=== PATIENT | female | born 1965 | race African-American/Black ===

== ENCOUNTER 2019-04-18 11:32 | Inpatient (IN) | payer OTHER ==
[2019-04-18 13:40] VITALS: BMI 24.9
--- NOTE | 2019-04-18 17:10 | HP ---
"CIWA Score Nausea/Vomitin-No Nausea/No Vomiting Muscle Tremors: 4-Moderate,w/Arms Extend Anxiety: 3 Agitation: 3 Paroxysmal Sweats: 2 (Slight facial mositure) Orientation: 0-Oriented Tacttile Disturbances: 0-None Auditory Disturbances: 0-None Visual Disturbances: 0-None Headache: 0-None Present CIWA-Ar Total Score: 12 - Admission Criteria OAS Guidelines: Admission for Medically Managed Detox: Requires at least one of the followin. CIWA greater than 12 2. Seizures within the past 24 hours 3. Delirium tremens within the past 24 hours 4. Hallucinations within the past 24 hours 5. Acute intervention needed for co occurring medical disorder 6. Acute intervention needed for co occurring psychiatric disorder 7. Severe withdrawal that cannot be handled at a lower level of care (continued vomiting, continued diarrhea, abnormal vital signs) requiring intravenous medication and/or fluids 8. Patient presents the following: CIWA greater than 12 Admission Criteria Met: Admission criteria met Admission ROS [facility] Chief Complaint: Alcohol withdrawal. Allergies/Adverse Reactions: Allergies Allergy/AdvReac Type Severity Reaction Status Date / Time No Known Drug Allergies Allergy Verified 04/18/19 17:56 rice Allergy Verified 04/18/19 13:30 History of Present Illness: Alcohol use began at age 13. Current use x 5 years is approx 3 -16 oz vodkas daily Cocaine - 1 bundle started use at about 15 years ago (Smokes and injects) Marijuana use began at age 15. Benzo use began at age 54. 1-2 klonopin 2x/wk Heroin use began at age 17. Relapses with heroin on the weekends. Uses IVDU. Does not share needles or works. On [facility]. Current methadone dose is 80 mg daily. Does not have a Narcan kit at home. Denies hx seizures or overdoses. Last blackout 1 month ago. PMHx: Asthma (last exacerbation years ago) MHHx: Depression, insomnia, and anxiety. Last saw a MH Provider 1 month ago. States compliant w/ mental health medications. Denies thoughts of harming self or others. Patient Name: Sabrina Guerra Date: 1965 Address: [address] [place] [address] Sex: Female Rx Written Rx Dispensed Drug Quantity Days Supply Prescriber Name 03/28/2019 04/04/2019 zolpidem tartrate 5 mg tablet 30 30 Adepoju, Caron Judie 02/24/2019 02/24/2019 zolpidem tartrate 10 mg tablet 30 30 Adepoju, Caron Judie 01/11/2019 01/12/2019 zolpidem tartrate 10 mg tablet 30 30 Adepoju, Caron Judie 11/29/2018 12/01/2018 zolpidem tartrate 10 mg tablet 30 30 Adepoju, Caron Judie 10/25/2018 10/29/2018 zolpidem tartrate 10 mg tablet 30 30 Adepoju, Caron Judie 09/14/2018 09/22/2018 zolpidem tartrate 10 mg tablet 30 30 Adepoju, Caron Judie 08/17/2018 08/23/2018 zolpidem tartrate 10 mg tablet 30 30 Adepoju, Caron Judie 07/20/2018 07/24/2018 zolpidem tartrate 10 mg tablet 30 30 Adepoju, Caron Judie 06/14/2018 06/24/2018 zolpidem tartrate 10 mg tablet 30 30 Adepoju, Caron Judie 05/24/2018 05/25/2018 zolpidem tartrate 10 mg tablet 30 30 Adepoju, Caron Judie 04/26/2018 04/27/2018 zolpidem tartrate 10 mg tablet 30 30 Adepoju, Caron Dimas Search Terms: Sabrina Charlie, 1965 Search Date: 04/18/2019 05:05:57 PM States Searched: [place], [place], [place], [place], [place], [place], [place], [place] The Drug Utilization Report below displays the controlled substance prescriptions, if any, that were dispensed in the indicated state(s). The information displayed on this report is compiled from requests submitted to other states' PMPs, and accurately reflects the information as returned by them. Blank diego indicate data not provided by other state. This report was requested by: Almaz Xavier | Reference #: [id number] Exam Limitations: No Limitations - Ebola screening Have you traveled outside of the country in the last 21 days: No Have you had contact with anyone from an Ebola affected area: No Have you been sick,other than usual withdrawal symptoms: No (Denies recent exposure to measles) Do you have a fever: No - Review of Systems Constitutional: Chills, Diaphoresis, Changes in sleep (Difficulty staying asleep ) EENT: reports: Cataracts ((R) eye - no eye drops), Dental Problems (Dentures. Able to chew and swallow ok) Respiratory: reports: No Symptoms reported Cardiac: reports: No Symptoms Reported GI: reports: No Symptoms Reported : reports: No Symptoms Reported Musculoskeletal: reports: No Symptoms Reported Neuro: reports: No Symptoms reported Endocrine: reports: No Symptoms Reported Hematology: reports: Anemia (Low iron) Psychiatric: reports: Judgement Intact, Agitated, Anxious, Depressed (Denies thoughts of harming self or others.) Other Systems: Reviewed and Negative Patient History - PPD History Previous Implant?: Yes Documented Results: Negative w/o proof Implanted On Prior R Admission?: No PPD to be Administered?: Yes - Reproductive History Patient is a Female of Child Bearing Age (11 -55 yrs old): Yes Patient : No (LMP 2014) - Smoking Cessation Smoking history: Current every day smoker Have you smoked in the past 12 months: Yes Aproximately how many cigarettes per day: 15 Hx Chewing Tobacco Use: No Initiated information on smoking cessation: Yes 'Breaking Loose' booklet given: 04/18/19 - Substance & Tx. History Hx Alcohol Use: Yes Hx Substance Use: Yes Substance Use Type: Alcohol, Cocaine, Marijuana, Tranquilizers - Substances abused Alcohol Substance route: Oral Frequency: Daily Amount used: 1 PINT VODKA Age of first use: 13 Date of last use: 04/18/19 Other Other (specify): METHADONE Substance route: Oral Frequency: Daily (Prescribed) Amount used: 80MG Age of first use: 42 Date of last use: 04/18/19 Admission Physical Exam S - Vital Signs Vital Signs: Vital Signs - 24 hr 04/18/19 13:30 Temperature 98.4 F Pulse Rate 86 Respiratory 18 Rate Blood Pressure 130/72 - Physical General Appearance: Yes: Nourished, Mild Distress, Tremorous, Sweating (Slight facial mositure), Anxious HEENTM: Yes: EOMI, Hearing grossly Normal, Normocephalic, Pharynx Normal (No teeth), Other ((R) pupil whitish/opaque in color. (L) black. Both pupils respond to light.) Respiratory: Yes: Lungs Clear, Normal Breath Sounds, No Respiratory Distress Neck: Yes: No masses,lesions,Nodules, Supple Breast: Yes: Breast Exam Deferred Cardiology: Yes: Regular Rhythm, Regular Rate (HR: 64.), S1, S2, Bradycardia, Other (Abnormal EKG (? septal infarct/T wave abnormality) this visit.) Abdominal: Yes: Non Tender, Flat, Soft, Increased Bowel Sounds Genitourinary: Yes: Within Normal Limits Back: Yes: Normal Inspection Musculoskeletal: Yes: full range of Motion, Gait Steady Extremities: Yes: Normal Capillary Refill, Normal Range of Motion, Non-Tender, Tremors (Tremors of hands when arms elevated) Neurological: Yes: painter supervisor II-XII NML intact, Fully Oriented, Alert, Motor Strength 5/5, Normal Mood/Affect Integumentary: Yes: Normal Color, Warm, Track Wayne (Few needle wayne. No increased erythema or warmth) Lymphatic: Yes: Within Normal Limits - Diagnostic (1) Alcohol dependence with uncomplicated withdrawal Current Visit: Yes Status: Acute (2) Cannabis dependence, uncomplicated Current Visit: Yes Status: Chronic (3) Sedative, hypnotic or anxiolytic abuse, uncomplicated Current Visit: Yes Status: Acute (4) Cocaine dependence, uncomplicated Current Visit: Yes Status: Chronic (5) Opioid dependence on agonist therapy Current Visit: Yes Status: Chronic Comment: On [facility]. Continues to relapse w/ opiates. (6) History of asthma Current Visit: No Status: Chronic (7) Pupil disorder Current Visit: Yes Status: Chronic Comment: Opaque (R) pupil (8) Abnormal finding on EKG Current Visit: Yes Status: Suspected Comment: Denies CP/SOB. Will repeat EKG in am. Cleared for Admission [facility] - Detox or Rehab [facility] Level of Care: Medically Managed Detox Regimen/Protocol: Librium Claeared for Rehab Admission: No Inpatient Rehab Admission - Rehab Decision to Admit Inpatient rehab admission?: No"
[2019-04-18] MEDS ORDERED: MAG HYDROX/AL HYDROX/SIMETH 30 ML UNIT-DOSE CUP PO PRN (17:40)
[2019-04-18] MEDS ORDERED: IBUPROFEN 400 MG TABLET (FP) PO PRN (17:40)
[2019-04-18] MEDS ORDERED: BISMUTH SUBSALICYLATE 524 MG/30 ML UD PO PRN (17:40)
[2019-04-18] MEDS ORDERED: METHOCARBAMOL 500 MG TABLET PO PRN (17:40)
[2019-04-18] MEDS ORDERED: MAGNESIUM HYDROX 2400MG/30ML ORAL SUSPENSION 30 ML CUP PO PRN (17:40)
[2019-04-18] MEDS ORDERED: guaiFENesin 200 MG/10 ML 10 ML UNIT-DOSE CUPS PO PRN (17:40)
[2019-04-18] MEDS ORDERED: ONDANSETRON *ODT* 4 MG TABLET SL PRN (17:40)
[2019-04-18] MEDS ORDERED: ACETAMINOPHEN 325 MG TABLET (FP) PO PRN ×2 (17:40)
[2019-04-18] MEDS ORDERED: chlordiazePOXIDE HCL 10 MG CAPSULE PO PRN (17:40)
[2019-04-18] MEDS ORDERED: NICOTINE POLACRILEX 2 MG GUM BUC PRN (17:40)
[2019-04-18] MEDS ORDERED: MENTHOL/PHENOL 1 EACH UD MM PRN (17:40)
[2019-04-18] MEDS ORDERED: MAGNESIUM CITRATE 300 ML BOTTLE PO PRN (17:40)
[2019-04-18] MEDS ORDERED: ALBUTEROL SO4 0.083% IH SOL 2.5 MG/3 ML VIAL.NEB. NEB PRN (17:43)
[2019-04-18] MEDS: MELATONIN 5 MG TABLETS PO PRN (22:17)
[2019-04-18] MEDS: chlordiazePOXIDE HCL 25 MG CAPSULE PO SCH (22:17)
[2019-04-18] MEDS: THIAMINE HCL 100 MG TABLET (FP) PO SCH (22:17)
[2019-04-19] MEDS: chlordiazePOXIDE HCL 25 MG CAPSULE PO SCH ×2 (06:02→13:48)
[2019-04-19] MEDS ORDERED: METHADONE HCL 40 MG DISPERSABLE TABLET PO ONE (08:40)
[2019-04-19] MEDS: PRENATAL VITAMINS W/ FOLIC ACID TABLET (FP) PO SCH (09:31)
[2019-04-19 10:37] LABS: ALBUMIN 3.2 g/dl (3.4-5.0); BILIRUBIN,TOTAL 0.2 mg/dL (0.2-1); CALCIUM 9.3 mg/dL (8.5-10.1); TOT PROT 6.5 g/dl (6.4-8.2)
[2019-04-19 10:38] LABS: HEMATOCRIT 42.3 % (32.4-45.2); HEMOGLOBIN 13.5 GM/dL (10.7-15.3); MCH 30.3 pg (25.7-33.7); MEAN CELL VOLUME 94.5 fl (80-96); MEAN PLT VOLUME 9.8 fl (7.5-11.1); PLATELET COUNT 154 K/MM3 (134-434); RBC 4.48 M/mm3 (3.60-5.2); RDW 14.2 % (11.6-15.6); WHITE BLOOD COUNT 5.1 K/mm3 (4.0-10.0)
--- NOTE | 2019-04-19 10:49 | PN ---
[facility] CIWA - CIWA Score Nausea/Vomitin-No Nausea/No Vomiting Muscle Tremors: 3 Anxiety: 3 Agitation: 3 Paroxysmal Sweats: 2 Orientation: 0-Oriented Tacttile Disturbances: 0-None Auditory Disturbances: 0-None Visual Disturbances: 0-None Headache: 0-None Present CIWA-Ar Total Score: 11 S Progress Note (SOAP) Subjective: irritable agitation body aches interrupted sleep Objective: 04/19/19 10:48 Vital Signs Temperature 97.5 F L 04/19/19 09:36 Pulse Rate 58 L 04/19/19 09:36 Respiratory Rate 17 04/19/19 09:36 Blood Pressure 139/68 04/19/19 09:36 O2 Sat by Pulse Oximetry (%) Laboratory Tests 04/18/19 04/19/19 04/19/19 18:31 07:00 07:00 WBC 5.1 RBC 4.48 Hgb 13.5 Hct 42.3 MCV 94.5 MCH 30.3 MCHC 32.0 RDW 14.2 Plt Count 154 MPV 9.8 Sodium 144 Potassium 4.0 Chloride 108 H Carbon Dioxide 35 H Anion Gap 2 L BUN 13 Creatinine 1.0 Est GFR (CKD-EPI)AfAm 73.97 Est GFR (CKD-EPI)NonAf 63.82 Random Glucose 71 L Calcium 9.3 Total Bilirubin 0.2 AST 29 ALT 31 Alkaline Phosphatase 95 Total Protein 6.5 Albumin 3.2 L POC Urine HCG, Qual Negative labs noted aaox3 ambulating no acute distress Assessment: 04/19/19 10:48 mild withdrawal sx Plan: continue detox increase fluids
[2019-04-19] MEDS: NICOTINE 21 MG/24 HOURS TOPICAL PATCH TD SCH (11:00)
--- NOTE | 2019-04-19 12:04 | EKG ---
Test Reason : Blood Pressure : / mmHG Vent. Rate : 060 BPM Atrial Rate : 060 BPM P-R Int : 128 ms QRS Dur : 082 ms QT Int : 444 ms P-R-T Axes : 053 074 060 degrees QTc Int : 444 ms NORMAL SINUS RHYTHM MODERATE VOLTAGE CRITERIA FOR LVH, MAY BE NORMAL VARIANT CANNOT RULE OUT SEPTAL INFARCT , AGE UNDETERMINED T WAVE ABNORMALITY, CONSIDER ANTERIOR ISCHEMIA ABNORMAL ECG NO PREVIOUS ECGS AVAILABLE Confirmed by Campbell Overton MD ([id number]) on 04/19/2019 12:04:28 PM Referred By: Confirmed By:Campbell Overton MD
--- NOTE | 2019-04-19 12:04 | EKG ---
Test Reason : Blood Pressure : / mmHG Vent. Rate : 063 BPM Atrial Rate : 063 BPM P-R Int : 136 ms QRS Dur : 074 ms QT Int : 442 ms P-R-T Axes : 061 058 041 degrees QTc Int : 452 ms NORMAL SINUS RHYTHM NONSPECIFIC T WAVE ABNORMALITY ABNORMAL ECG WHEN COMPARED WITH ECG OF 18-APR-2019 18:54, NO SIGNIFICANT CHANGE WAS FOUND Confirmed by Campbell Overton MD ([id number]) on 04/19/2019 12:04:24 PM Referred By: ALEJO PETER Confirmed By:Campbell Overton MD
[2019-04-19] MEDS: chlordiazePOXIDE 5 MG CAPSULE PO SCH (21:55)
[2019-04-19] MEDS: MELATONIN 5 MG TABLETS PO PRN (21:55)
[2019-04-19] MEDS: THIAMINE HCL 100 MG TABLET (FP) PO SCH (21:55)
[2019-04-19 23:35] LABS: EPI CELLS 8.5 /HPF (0-5/HPF); HYALINE CASTS 15 /lpf (0-8); URINE BACTERIA 360.9 /hpf (NEGATIVE); URINE RBC 3 /hpf (0-4); URINE WBC 15 /hpf (0-5)
[2019-04-19 23:52] LABS: URINE APPEARANCE CLOUDY; URINE BILIRUBIN NEGATIVE (NEGATIVE); URINE COLOR YELLOW; URINE GLUCOSE (UA) NEGATIVE (NEGATIVE); URINE KETONE TRACE (NEGATIVE)
[2019-04-19 23:53] LABS: URINE LEUK ESTERASE 2+ (NEGATIVE); URINE NITRITE NEGATIVE (NEGATIVE); URINE PROTEIN NEGATIVE (NEGATIVE)
[2019-04-20 01:50] LABS: URINE CRYSTALS 1+ /hpf
[2019-04-20] MEDS: METHADONE HCL 40 MG DISPERSABLE TABLET PO SCH (05:34)
[2019-04-20] MEDS: chlordiazePOXIDE 5 MG CAPSULE PO SCH ×2 (05:34→12:20)
--- NOTE | 2019-04-20 10:55 | PN ---
[facility] CIWA - CIWA Score Nausea/Vomitin-No Nausea/No Vomiting Muscle Tremors: 3 Anxiety: 2 Agitation: 2 Paroxysmal Sweats: 2 Orientation: 0-Oriented Tacttile Disturbances: 0-None Auditory Disturbances: 0-None Visual Disturbances: 0-None Headache: 0-None Present CIWA-Ar Total Score: 9 S Progress Note (SOAP) Subjective: feeling better little sweats chills Objective: 04/20/19 10:29 Vital Signs Temperature 97.7 F 04/20/19 09:35 Pulse Rate 53 L 04/20/19 09:35 Respiratory Rate 18 04/20/19 09:35 Blood Pressure 103/70 04/20/19 09:35 O2 Sat by Pulse Oximetry (%) Laboratory Tests 04/18/19 04/19/19 04/19/19 18:31 07:00 07:00 WBC 5.1 RBC 4.48 Hgb 13.5 Hct 42.3 MCV 94.5 MCH 30.3 MCHC 32.0 RDW 14.2 Plt Count 154 MPV 9.8 Sodium 144 Potassium 4.0 Chloride 108 H Carbon Dioxide 35 H Anion Gap 2 L BUN 13 Creatinine 1.0 Est GFR (CKD-EPI)AfAm 73.97 Est GFR (CKD-EPI)NonAf 63.82 Random Glucose 71 L Calcium 9.3 Total Bilirubin 0.2 AST 29 ALT 31 Alkaline Phosphatase 95 Total Protein 6.5 Albumin 3.2 L Urine Color Urine Appearance Urine pH Ur Specific [place] Urine Protein Urine Glucose (UA) Urine Ketones Urine Blood Urine Nitrite Urine Bilirubin Urine Urobilinogen Ur Leukocyte Esterase Urine WBC (Auto) Urine RBC (Auto) Urine Casts (Auto) U Epithel Cells (Auto) U Sm Round Cell (Auto) Urine Crystals (Auto) Urine Bacteria (Auto) POC Urine HCG, Qual Negative RPR Titer 04/19/19 04/19/19 07:00 11:20 WBC RBC Hgb Hct MCV MCH MCHC RDW Plt Count MPV Sodium Potassium Chloride Carbon Dioxide Anion Gap BUN Creatinine Est GFR (CKD-EPI)AfAm Est GFR (CKD-EPI)NonAf Random Glucose Calcium Total Bilirubin AST ALT Alkaline Phosphatase Total Protein Albumin Urine Color Yellow Urine Appearance Cloudy Urine pH 6.0 Ur Specific [place] 1.024 Urine Protein Negative Urine Glucose (UA) Negative Urine Ketones Trace H Urine Blood Negative Urine Nitrite Negative Urine Bilirubin Negative Urine Urobilinogen 1.0 Ur Leukocyte Esterase 2+ H Urine WBC (Auto) 15 Urine RBC (Auto) 3 Urine Casts (Auto) 15 U Epithel Cells (Auto) 8.5 U Sm Round Cell (Auto) 1+ Urine Crystals (Auto) 1+ Urine Bacteria (Auto) 360.9 POC Urine HCG, Qual RPR Titer Nonreactive labs noted repeat u/a aaox3 ambulating no acute distress Assessment: 04/20/19 10:55 mild withdrawal sx Plan: continue detox increase fluids repeat u/a
[2019-04-20] MEDS: NICOTINE 21 MG/24 HOURS TOPICAL PATCH TD SCH (10:57)
[2019-04-20] MEDS: PRENATAL VITAMINS W/ FOLIC ACID TABLET (FP) PO SCH (10:57)
[2019-04-20] MEDS ORDERED: chlordiazePOXIDE HCL 10 MG CAPSULE PO PRN (21:00)
[2019-04-20] MEDS: THIAMINE HCL 100 MG TABLET (FP) PO SCH (22:37)
[2019-04-20] MEDS: chlordiazePOXIDE HCL 10 MG CAPSULE PO SCH (22:37)
[2019-04-20] MEDS: MELATONIN 5 MG TABLETS PO PRN (22:38)
[2019-04-21] MEDS: METHADONE HCL 40 MG DISPERSABLE TABLET PO SCH (05:36)
[2019-04-21] MEDS: chlordiazePOXIDE HCL 10 MG CAPSULE PO SCH ×3 (05:36→22:38)
[2019-04-21] MEDS: NICOTINE 21 MG/24 HOURS TOPICAL PATCH TD SCH (10:04)
[2019-04-21] MEDS: PRENATAL VITAMINS W/ FOLIC ACID TABLET (FP) PO SCH (10:04)
--- NOTE | 2019-04-21 11:15 | PN ---
S CIWA - CIWA Score Nausea/Vomitin-No Nausea/No Vomiting Muscle Tremors: 1-None Visible, but [place] Anxiety: 1-Mildly Anxious Agitation: 1-Slight > Activity Paroxysmal Sweats: No Perspiration Orientation: 0-Oriented Tacttile Disturbances: 0-None Auditory Disturbances: 0-None Visual Disturbances: 0-None Headache: 0-None Present CIWA-Ar Total Score: 3 BHS Progress Note (SOAP) Subjective: feeling much better little anxiety Objective: 04/21/19 11:17 Vital Signs Temperature 97.6 F 04/21/19 09:30 Pulse Rate 54 L 04/21/19 09:30 Respiratory Rate 18 04/21/19 09:30 Blood Pressure 104/67 04/21/19 09:30 O2 Sat by Pulse Oximetry (%) aaox3 ambulating no acute distress Assessment: 04/21/19 11:17 withdrawal sx Plan: continue detox increase fluids d/c in am
[2019-04-21 14:47] LABS: EPI CELLS >36 /HPF (0-5/HPF); HYALINE CASTS 38 /lpf (0-8); PH,URINE 6.5 (5.0-8.0); URINE APPEARANCE TURBID; URINE BILIRUBIN NEGATIVE (NEGATIVE); URINE COLOR YELLOW; URINE GLUCOSE (UA) NEGATIVE (NEGATIVE); URINE KETONE NEGATIVE (NEGATIVE); URINE LEUK ESTERASE 3+ (NEGATIVE); URINE NITRITE NEGATIVE (NEGATIVE); URINE PROTEIN NEGATIVE (NEGATIVE); URINE WBC 128 /hpf (0-5)
[2019-04-21 15:15] LABS: URINE RBC 3.6 /hpf (0-4)
[2019-04-21] MEDS: THIAMINE HCL 100 MG TABLET (FP) PO SCH (22:38)
[2019-04-21] MEDS: MELATONIN 5 MG TABLETS PO PRN (22:38)
[2019-04-22] MEDS: METHADONE HCL 40 MG DISPERSABLE TABLET PO SCH (06:12)
--- NOTE | 2019-04-22 09:59 | DS ---
[facility] Detox Discharge Summary Admission Date: 04/18/19 Discharge Date: 04/22/19 - History Present History: Alcohol Dependence, Cannabis Dependence, Cocaine Dependence, Sedative Dependence - Physical Exam Results Vital Signs: Vital Signs Temperature 98.0 F 04/22/19 09:26 Pulse Rate 51 L 04/22/19 09:26 Respiratory Rate 18 04/22/19 09:26 Blood Pressure 106/53 L 04/22/19 09:26 O2 Sat by Pulse Oximetry (%) - Treatment Hospital Course: Detox Protocol Followed, Detoxed Safely, Responded well, Discharged Condition Good, Rehab Referral Accepted - Medication Discharge Medications: Ambulatory Orders Albuterol Sulfate Inhaler - [Ventolin Hfa Inhaler -] 1 - 2 inh PO Q4H 04/18/19 Methadone [Dolophine -] 80 mg PO DAILY 04/18/19 Sertraline HCl [Zoloft -] 25 mg PO DAILY 04/18/19 traZODone HCL [Trazodone HCl] 50 mg PO HS 04/18/19 - Diagnosis (1) Alcohol dependence with uncomplicated withdrawal Current Visit: Yes Status: Chronic (2) Sedative, hypnotic or anxiolytic abuse, uncomplicated Current Visit: Yes Status: Chronic (3) Cannabis dependence, uncomplicated Current Visit: Yes Status: Chronic (4) Cocaine dependence, uncomplicated Current Visit: Yes Status: Chronic (5) Opioid dependence on agonist therapy Current Visit: Yes Status: Chronic (6) Abnormal finding on EKG Current Visit: Yes Status: Suspected (7) History of asthma Current Visit: Yes Status: Chronic - AMA Did Patient Leave Against Medical Advice: No ([facility]
[2019-04-22] MEDS: PRENATAL VITAMINS W/ FOLIC ACID TABLET (FP) PO SCH (10:03)
[2019-04-22] MEDS: NICOTINE 21 MG/24 HOURS TOPICAL PATCH TD SCH (10:03)
[2019-04-22 13:58] VITALS: BP 103/54; PULSE 67; TEMP 97.6
== END 2019-04-22 13:53 | disposition other institution (70) | DRG 773 ==
LOC: YASAS 11:32 → Y6N 18:55
PROVIDERS: ADMIT Surgery; ATTEND Surgery
PROC: HZ2ZZZZ Detoxification Services for Substance Abuse Treatment (ICD-10-PCS; principal; 2019-04-18)
DX: F10.230 Alcohol dependence with withdrawal, uncomplicated (principal); F13.230 Sedative, hypnotic or anxiolytic dependence with withdrawal, uncomplicated; F14.20 Cocaine dependence, uncomplicated; F12.20 Cannabis dependence, uncomplicated; F11.20 Opioid dependence, uncomplicated; H26.9 Unspecified cataract; R94.31 Abnormal electrocardiogram [ECG] [EKG]; Z87.09 Personal history of other diseases of the respiratory system
CPT/HCPCS: 36415; 80053; 81003; 81025; 85027; 86593; 93005; 93010

== ENCOUNTER 2019-04-22 14:22 | Inpatient (IN) | payer OTHER | END 2019-05-05 09:12 | disposition home or self-care (01) | LOC: YASAS 14:22 → Y3E 14:23 ==